=== PATIENT | female | born 1980 | race Caucasian/White ===

== ENCOUNTER 2019-10-30 12:15 | Emergency (ER) | payer OTHER ==
[~2019-10-30] VITALS: Ht 172.7 cm; Wt 99.8 kg
[2019-10-30 13:47] LABS: BASOPHILS 0.5 % (0.0-2.0); EOSINOPHILS 1.8 % (0.0-3.0); HEMOGLOBIN 13.7 gm/dL (12.0-15.0); LYMPHOCYTES 33.5 % (24.0-44.0); MCH 30.2 pg (26.0-34.0); MCHC 33.4 g/dL (28.0-37.0); MCV 90.3 fL (80.0-100.0); MONOCYTES 8.4 % (1.0-8.0); PLATELET COUNT 187 thou/uL (150-400); POLYS 55.8 % (36.0-66.0); RBC 4.54 mil/uL (4.20-5.00); RDW 13.9 % (10.5-14.5); WBC 7.1 thou/uL (4.0-11.0)
[2019-10-30 13:57] LABS: CALCIUM 9.3 mg/dL (8.5-10.1); CREATININE 0.7 mg/dL (0.6-1.0); POTASSIUM 3.8 mmol/L (3.5-5.1)
[2019-10-30 14:03] LABS: ALBUMIN 3.9 g/dL (3.4-5.0); TOTAL BILIRUBIN 0.1 mg/dL (<0.1-1.0); TOTAL PROTEIN 7.3 g/dL (6.4-8.2)
[2019-10-30 14:36] VITALS: BP 122/81
[2019-10-30] MEDS ORDERED: PROAIR HFA8.5 GM INH (14:37)
[2019-10-30] MEDS ORDERED: PROMETH-CODEIN 65 ML PO (14:37)
== END 2019-10-30 14:36 | disposition home or self-care (01) ==
LOC: ER 12:15
PROVIDERS: Physician Assistant
DX: R06.02 Shortness of breath (principal); R05 Cough; R68.83 Chills (without fever); R61 Generalized hyperhidrosis; M79.18 Myalgia, other site; F17.210 Nicotine dependence, cigarettes, uncomplicated; Z88.6 Allergy status to analgesic agent